=== PATIENT | male | born 1935 | race Caucasian/White ===

== ENCOUNTER 2023-03-03 11:36 | Inpatient (IN) | payer MEDICARE, OTHER ==
[~2023-03-03] VITALS: Ht 167.6 cm; Wt 77.1 kg
--- NOTE | 2023-03-03 11:40 | NUR ---
BIB [facility], Pt. AOX4, speaks ugandan, IV site on R AC noted.
[2023-03-03] MEDS ORDERED: IV NORMAL SALINE 500 ML BAG IV ONE (11:45)
--- NOTE | 2023-03-03 11:55 | NUR ---
cxr in process
[2023-03-03] MEDS ORDERED: AZIL40TA PO (11:58)
[2023-03-03] MEDS ORDERED: LINA290C PO (11:58)
[2023-03-03] MEDS ORDERED: CHOL2000 PO (11:58)
[2023-03-03] MEDS ORDERED: SODI650T PO (11:58)
[2023-03-03] MEDS ORDERED: ROSU20TA32 PO (11:58)
--- NOTE | 2023-03-03 12:09 | NUR ---
CT in process
[2023-03-03 12:21] LABS: HEMATOCRIT 34.8 % (36.7-47.1); MEAN CORPUSCULAR HEMOGLOBIN 30.2 uug (23.8-33.4); MEAN CORPUSCULAR VOLUME 90.7 fL (73.0-96.2); PLATELET COUNT (AUTO) 178 K/uL (152-348)
--- NOTE | 2023-03-03 12:35 | NUR ---
"Plan to admit" per Dr Esteves. ER registration /admitting staff Nicolas notified.
[2023-03-03 12:41] LABS: THYROID STIMULATING HORMONE 3.986 mIU/mL (0.358-3.740)
[2023-03-03 12:47] LABS: CARBON DIOXIDE 23 mmol/L (21-32); CHLORIDE 104 mmol/L (98-107); CREATININE 1.4 mg/dL (0.6-1.3); GLUCOSE 147 mg/dL (74-106); UREA NITROGEN, BLOOD 23 mg/dL (7-18)
--- NOTE | 2023-03-03 12:52 | NUR ---
back from CT, VSS at this time
[2023-03-03 12:57] LABS: ALANINE AMINOTRANSFERASE 16 U/L (16-63); ALKALINE PHOSPHATASE 88 U/L (50-136); ASPARTATE AMINOTRANSFERASE 17 U/L (15-37); BILIRUBIN,DIRECT 0.2 mg/dL (0.0-0.2); BILIRUBIN,TOTAL 0.6 mg/dL (0.2-1.0); TOTAL PROTEIN, SERUM 6.8 g/dL (6.4-8.2)
--- NOTE | 2023-03-03 13:04 | NUR ---
asked patient to urinate for ua sample and said "I will let you know when I have to go"
--- NOTE | 2023-03-03 13:50 | NUR ---
called [facility] for call panel, awaiting for call back
--- NOTE | 2023-03-03 14:09 | NUR ---
called Elvia for report. will call back
--- NOTE | 2023-03-03 14:15 | NUR ---
Stephanie called back, currently talking to MD Esteves
--- NOTE | 2023-03-03 14:39 | NUR ---
called dtr to inform about father will be getting admitted.
--- NOTE | 2023-03-03 14:40 | NUR ---
dtr called back and is now speaking to MD Grajeda urine collected and sent to lab
[2023-03-03 14:42] LABS: *BILIRUBIN,URIN NEGATIVE (NEGATIVE); *BLOOD, URINE NEGATIVE (NEGATIVE); *CLARITY,URINE CLEAR (CLEAR); *COLOR,URINE YELLOW (YELLOW); *KETONES,URINE 2+ (NEGATIVE); LEUKOCYTE ESTERASE ,URINE NEGATIVE (NEGATIVE); NITRITE, URINE NEGATIVE (NEGATIVE); PH,URINE 5.5 (5.0-8.0); UGLUCOSE NEGATIVE (NEGATIVE)
[2023-03-03] MEDS ORDERED: ACETAMINOPHEN 325 MG TABLET PO PRN (15:15)
[2023-03-03] MEDS ORDERED: REMEDY ESSENTIAL ZINC PASTE 113 GM TP PRN (15:15)
[2023-03-03] MEDS ORDERED: MAGNESIUM HYDROXIDE 30 ML LIQUID UDC PO PRN (15:15)
[2023-03-03] MEDS ORDERED: ZOLPIDEM 5 MG TABLET PO PRN (15:15)
[2023-03-03] MEDS ORDERED: ONDANSETRON 4 MG/2 ML VIAL IV PRN (15:15)
--- NOTE | 2023-03-03 15:45 | NUR ---
Received new admission from ER via stretcher. 87 y/o male, Dx.Syncope. Alert, awake and oriented. IV site at left AC g.18 intact and patent. Sinus rhythm on tele with HR of 77bpm. Admission care rendered, oriented to room, TV, BR and call light. Care plan initiated. Needs attended.
[2023-03-03 16:00] VITALS: BP 158/78
[2023-03-03] MEDS: IV NS 1000 ML 1,000 ML IV SCH (16:28)
[2023-03-03] MEDS ORDERED: DEXTROSE 50% 50 ML DISP.SYRIN IV PRN (17:45)
[2023-03-03] MEDS ORDERED: INSULIN REGULAR, HUMAN 300 UNIT/3 ML VIAL SQ PRN (17:45)
[2023-03-03 17:54] VITALS: BP 152/72
[2023-03-03 20:00] VITALS: BP 144/77
--- NOTE | 2023-03-03 20:00 | NUR ---
rounds made patient in bed AAOX3 able to to answer simple questions.no respiratory distress noted breathing even and unlabored on room air .urinal placed at b/s advised patient not to get oob by self call light placed with in reach .
[2023-03-03] MEDS: BLOOD SUGAR DIAGNOSTIC 1 EACH STRIP VI SCH (21:21)
[2023-03-03] MEDS: APIXABAN 2.5 MG TABLET PO SCH (21:21)
--- NOTE | 2023-03-03 21:21 | NUR ---
fingerstick done 125 no insulin coverage needed . patient able to take medication with sips of water given eliquis .
[2023-03-03 21:30] LABS: BACTERIA,URINE FEW /HPF (NONE SEEN); RBC,URINE 0-3 /HPF (0-3); SQUAMOUS EPITHELIAL CELL,UR FEW /HPF (NONE SEEN); WBC,URINE 0-3 /HPF (0-3)
[2023-03-04] VITALS (9 sets, daily range): BP systolic 125–167; BP diastolic 63–78
--- NOTE | 2023-03-04 01:11 | NUR ---
rounds made patient in bed awake using the urinal assisted patient voided yellowish urine about 300ml .
[2023-03-04] MEDS: IV NS 1000 ML 1,000 ML IV SCH (05:16)
[2023-03-04] MEDS: LEVOTHYROXINE SODIUM 50 MCG TABLET PO SCH (06:06)
[2023-03-04 06:42] LABS: HEMATOCRIT 34.6 % (36.7-47.1); MEAN CORPUSCULAR HEMOGLOBIN 30.4 uug (23.8-33.4); MEAN CORPUSCULAR VOLUME 89.1 fL (73.0-96.2); PLATELET COUNT (AUTO) 197 K/uL (152-348)
[2023-03-04 06:52] LABS: CARBON DIOXIDE 25 mmol/L (21-32); CHLORIDE 105 mmol/L (98-107); CREATININE 1.3 mg/dL (0.6-1.3); GLUCOSE 109 mg/dL (74-106); PHOSPHOROUS 3.5 mg/dL (2.5-4.9); POTASSIUM 4.2 mmol/L (3.5-5.1); UREA NITROGEN, BLOOD 22 mg/dL (7-18)
[2023-03-04 07:04] LABS: IRON, SERUM 38 ug/dL (50-175)
[2023-03-04] MEDS: BLOOD SUGAR DIAGNOSTIC 1 EACH STRIP VI SCH ×4 (07:42→20:41)
--- NOTE | 2023-03-04 08:00 | NUR ---
Received patient lying bed awake alert and oriented with ongoing IVF NS 1L @ 75 cc/hr infusing well at left AC g. 18 intact and patent. SR on tele HR at 86bpm. O2 sat at 97% on room air. No complain, not in distress. On regular diet. Attended
[2023-03-04 08:25] LABS: CHOLESTEROL 98 mg/dL (<200); HDL CHOLESTEROL 37 mg/dL (40-60); TRIGLYCERIDES 104 MG/DL (30-150)
[2023-03-04] MEDS: PANTOPRAZOLE SODIUM 40 MG VIAL IV SCH (08:38)
[2023-03-04] MEDS: APIXABAN 2.5 MG TABLET PO SCH ×2 (08:38→20:23)
[2023-03-04] MEDS: CLOPIDOGREL 75 MG TABLET PO SCH (08:38)
[2023-03-04] MEDS: AMIODARONE HCL 200 MG TABLET PO SCH (08:38)
--- NOTE | 2023-03-04 09:00 | NUR ---
Seen and examined by Dr. Ponce patient for 2D Echo and pacemaker interrogation to be done [place]. morning. Continue care plan. Attended
--- NOTE | 2023-03-04 10:00 | NUR ---
Seen and examined by Stephanie VAIL, with orders made and carried out. Stephanie, discussed with patient and daughter Lauren MOLINA planning for a.m. after pacemaker interrogation
--- NOTE | 2023-03-04 11:00 | NUR ---
Patient was seen by PT for eval, able to ambulate with walker.
--- NOTE | 2023-03-04 14:00 | NUR ---
Seen patient in bed, no complain. Resting comfortably. Used bathroom at times and urinal at bedside Needs attended
--- NOTE | 2023-03-04 20:30 | NUR ---
fingerstick done and patient blood sugar 125 patient on ISS mild no insulin needed .
--- NOTE | 2023-03-04 20:45 | NUR ---
due medication given and tolerated with water . eliquis no s/s of bleeding . SR TO SB on the heart monitor .on room no respiratory distress noted breathing given and unlabored .advised patient to call for assistance patient verbalized understanding .call light placed with in reach and urinal placed with in reach .
--- NOTE | 2023-03-04 21:30 | NUR ---
snack provided patient requested applesauce and vanilla pudding . patient able to feed self . assisted sitting at the side of the bed .
--- NOTE | 2023-03-04 22:15 | NUR ---
patient voided and able to used the urinal about 300 ml of yellowish urine .
[2023-03-05] VITALS: BP 141/62
--- NOTE | 2023-03-05 02:00 | NUR ---
rounds made patient in bed sleep[ing no distress noted breathing even and unlabored . patient uses the urinal at bedside .
[2023-03-05 04:00] VITALS: BP 148/63
[2023-03-05] MEDS: LEVOTHYROXINE SODIUM 50 MCG TABLET PO SCH (06:26)
--- NOTE | 2023-03-05 06:30 | NUR ---
accuchecked done fingerstick result is 100 no insulin needed .
[2023-03-05 06:34] LABS: HEMATOCRIT 32.9 % (36.7-47.1); MEAN CORPUSCULAR HEMOGLOBIN 30.8 uug (23.8-33.4); MEAN CORPUSCULAR VOLUME 88.9 fL (73.0-96.2); PLATELET COUNT (AUTO) 187 K/uL (152-348)
[2023-03-05] MEDS: BLOOD SUGAR DIAGNOSTIC 1 EACH STRIP VI SCH ×3 (06:36→16:10)
--- NOTE | 2023-03-05 07:00 | NUR ---
bedside report given to the day shift RN .
[2023-03-05 07:24] LABS: CARBON DIOXIDE 25 mmol/L (21-32); CHLORIDE 105 mmol/L (98-107); CREATININE 1.4 mg/dL (0.6-1.3); GLUCOSE 95 mg/dL (74-106); MAGNESIUM 1.8 mg/dL (1.8-2.4); PHOSPHOROUS 3.1 mg/dL (2.5-4.9); POTASSIUM 3.8 mmol/L (3.5-5.1); UREA NITROGEN, BLOOD 20 mg/dL (7-18)
[2023-03-05] MEDS: AMIODARONE HCL 200 MG TABLET PO SCH (08:27)
[2023-03-05] MEDS: PANTOPRAZOLE SODIUM 40 MG VIAL IV SCH (08:28)
[2023-03-05] MEDS: APIXABAN 2.5 MG TABLET PO SCH (08:28)
[2023-03-05] MEDS: CLOPIDOGREL 75 MG TABLET PO SCH (08:28)
[2023-03-05 11:21] VITALS: BP 147/59
[2023-03-05] MEDS ORDERED: FOLI1TAB27 PO (14:20)
[2023-03-05] MEDS ORDERED: CLOP75TA15 PO (14:20)
[2023-03-05] MEDS ORDERED: ICOS1CAP PO (14:20)
[2023-03-05] MEDS ORDERED: ESOM40CA PO (14:20)
[2023-03-05] MEDS ORDERED: GLIM4TAB37 PO (14:20)
[2023-03-05] MEDS ORDERED: LEVO50TA8 PO (14:20)
[2023-03-05] MEDS ORDERED: MIDO2.5T PO (14:20)
[2023-03-05] MEDS ORDERED: DUTA0.5C37 PO (14:22)
[2023-03-05] MEDS ORDERED: APIX2.5T PO (14:22)
--- NOTE | 2023-03-05 18:08 | NUR ---
Pt. discharged home and his daughter picked him up. Pt. noted to be stable upon the discharge. No c/o pain. IV line removed. All necessary document signed and one copy provided to the patient. Notified the patient and daughter that pt. 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 All personal belonging returned to the pt. and [employer] wheeled the pt. down.
== END 2023-03-05 18:00 | disposition home or self-care (01) | DRG 640 ==
LOC: ER 11:36 → TELE3 14:48
PROVIDERS: ADMIT Nurse Practitioner Acute Care; ATTEND Nurse Practitioner Acute Care
DX: E86.0 Dehydration (principal); N17.0 Acute kidney failure with tubular necrosis; I69.351 Hemiplegia and hemiparesis following cerebral infarction affecting right dominant side; I45.2 Bifascicular block; I48.0 Paroxysmal atrial fibrillation; Z79.01 Long term (current) use of anticoagulants; Z79.899 Other long term (current) drug therapy; Z95.0 Presence of cardiac pacemaker; E11.9 Type 2 diabetes mellitus without complications; E03.9 Hypothyroidism, unspecified; K58.9 Irritable bowel syndrome, unspecified; M47.812 Spondylosis without myelopathy or radiculopathy, cervical region; I10 Essential (primary) hypertension; D63.8 Anemia in other chronic diseases classified elsewhere; G93.89 Other specified disorders of brain
CPT/HCPCS: 36415; 70450; 71045; 72125; 83550; 83605; 83735; 84100; 84443; 84484; 85025; 85730; 86850; 86900; 86901; 87040; 93005; 93307; A4663; C1758; C9113; G0378; J1815; J7040

== ENCOUNTER 2023-06-17 11:15 | Inpatient (IN) | payer MEDICARE, OTHER ==
[~2023-06-17] VITALS: Ht 170.2 cm; Wt 83.9 kg
[~2023-06-17 11:15] MED LIST: APIX2.5T PO; AZIL40TA PO; CHOL2000 PO; CLOP75TA15 PO; DUTA0.5C37 PO; ESOM40CA PO; FOLI1TAB27 PO; GLIM4TAB37 PO; ICOS1CAP PO; LEVO50TA8 PO; LINA290C PO; ROSU20TA32 PO; SODI650T PO
[2023-06-17 11:35] LABS: BASOPHILS # (AUTO) 0.1 K/UL (0.0-0.2); BASOPHILS % (AUTO) 1.9 % (0.0-2.0); DIFFERENTIAL COMMENT 1; EOSINOPHILS # (AUTO) 0.1 K/uL (0.0-0.7); EOSINOPHILS % (AUTO) 1.8 % (0.0-7.0); HEMOGLOBIN 11.9 g/dL (12.5-16.3); LYMPHOCYTES # (AUTO) 1.4 K/uL (0.8-4.8); LYMPHOCYTES % (AUTO) 19.4 % (20.5-51.5); MEAN CORPUSCULAR HEMOGLOBIN 29.8 uug (23.8-33.4); MEAN CORPUSCULAR HGB CONC 33 g/dL (32.5-36.3); MEAN CORPUSCULAR VOLUME 90.2 fL (73.0-96.2); MONOCYTES # (AUTO) 0.3 K/uL (0.1-1.30); MONOCYTES % (AUTO) 3.4 % (0.0-11.0); NEUTROPHILS # (AUTO) 5.4 K/uL (1.8-8.9); NEUTROPHILS % (AUTO) 73.5 % (38.5-71.5); PLATELET COUNT (AUTO) 176 K/uL (152-348); RED BLOOD CELL COUNT(AUTO) 3.99 MIL/uL (4.06-5.63); RED CELL DISTRIBUTION WIDTH 14.1 % (12.1-16.2); WHITE BLOOD COUNT (AUTO) 7.3 K/uL (3.6-10.2)
[2023-06-17 11:52] LABS: CALCIUM 9.2 mg/dL (8.5-10.1); CARBON DIOXIDE 23 mmol/L (21-32); CHLORIDE 104 mmol/L (98-107); CREATININE 1.8 mg/dL (0.6-1.3); GLUCOSE 210 mg/dL (74-106); POTASSIUM 4.1 mmol/L (3.5-5.1); SODIUM SERUM 138 mmol/L (136-145); UREA NITROGEN, BLOOD 33 mg/dL (7-18)
[2023-06-17 11:55] LABS: ALBUMIN 3.3 g/dL (3.4-5.0); BILIRUBIN,DIRECT 0.2 mg/dL (0.0-0.2); BILIRUBIN,TOTAL 0.6 mg/dL (0.2-1.0)
[2023-06-17] MEDS ORDERED: HYDR453.3 TP (12:52)
[2023-06-17] MEDS ORDERED: AMIO200T5 PO (12:52)
[2023-06-17] MEDS ORDERED: IV NORMAL SALINE 1000 ML BAG IV ONE (13:00)
[2023-06-17] MEDS ORDERED: AZITHROMYCIN 250 MG TABLET PO ONE (13:00)
[2023-06-17] MEDS ORDERED: CEFTRIAXONE 1 G in IV DEXTROSE 5% 50 ML IV ONE (13:00)
[2023-06-17] MEDS ORDERED: CEFTRIAXONE /D5W 50ML IVPB **ER PYXIS IV ONE (13:17)
[2023-06-17] MEDS ORDERED: AZITHROMYCIN 250 MG TABLET ONE (13:18)
[2023-06-17 14:17] LABS: *BILIRUBIN,URIN NEGATIVE (NEGATIVE); *BLOOD, URINE NEGATIVE (NEGATIVE); *CLARITY,URINE CLEAR (CLEAR); *COLOR,URINE YELLOW (YELLOW); *KETONES,URINE NEGATIVE (NEGATIVE); *PROTEIN,URINE TRACE (NEGATIVE); LEUKOCYTE ESTERASE ,URINE NEGATIVE (NEGATIVE); NITRITE, URINE NEGATIVE (NEGATIVE); UGLUCOSE NEGATIVE (NEGATIVE)
[2023-06-17 16:20] VITALS: BP 164/72; TEMP 97.6; O2SAT 96
[2023-06-17] MEDS ORDERED: DEXTROSE 50% 50 ML DISP.SYRIN IV PRN (19:30)
[2023-06-17] MEDS ORDERED: HYDROCORTISONE 2.5% CREAM 20 GM TUBE TOP PRN (19:30)
[2023-06-17 20:00] VITALS: BP 142/68; TEMP 97.8; O2SAT 93
[2023-06-17] MEDS: BLOOD SUGAR DIAGNOSTIC 1 EACH STRIP VI SCH (20:28)
[2023-06-17] MEDS: INSULIN REGULAR, HUMAN 300 UNIT/3 ML VIAL SQ PRN (20:33)
[2023-06-17] MEDS ORDERED: HEPARIN SODIUM,PORCINE 5,000 UNITS/ML VIAL SQ SCH (22:00)
[2023-06-18] VITALS: BP 142/55; TEMP 98.4; O2SAT 94
[2023-06-18 04:00] VITALS: BP 126/66; TEMP 97.6; O2SAT 95
[2023-06-18] MEDS ORDERED: PANTOPRAZOLE SODIUM 40 MG TABLET.DR PO SCH ×2 (07:00)
[2023-06-18] MEDS ORDERED: LEVOTHYROXINE SODIUM 50 MCG TABLET PO SCH (07:00)
[2023-06-18] MEDS: BLOOD SUGAR DIAGNOSTIC 1 EACH STRIP VI SCH ×3 (07:01→16:40)
[2023-06-18 07:25] LABS: BASOPHILS % (AUTO) 0.5 % (0.0-2.0); EOSINOPHILS # (AUTO) 0.2 K/uL (0.0-0.7); EOSINOPHILS % (AUTO) 2.2 % (0.0-7.0); HEMATOCRIT 34.2 % (36.7-47.1); HEMOGLOBIN 11.7 g/dL (12.5-16.3); LYMPHOCYTES # (AUTO) 1.7 K/uL (0.8-4.8); LYMPHOCYTES % (AUTO) 20.7 % (20.5-51.5); MEAN CORPUSCULAR HEMOGLOBIN 30.3 uug (23.8-33.4); MEAN CORPUSCULAR HGB CONC 34 g/dL (32.5-36.3); MONOCYTES # (AUTO) 0.6 K/uL (0.1-1.30); MONOCYTES % (AUTO) 7.3 % (0.0-11.0); NEUTROPHILS # (AUTO) 5.8 K/uL (1.8-8.9); NEUTROPHILS % (AUTO) 69.3 % (38.5-71.5); PLATELET COUNT (AUTO) 175 K/uL (152-348); RED BLOOD CELL COUNT(AUTO) 3.85 MIL/uL (4.06-5.63); RED CELL DISTRIBUTION WIDTH 14.3 % (12.1-16.2); WHITE BLOOD COUNT (AUTO) 8.4 K/uL (3.6-10.2)
[2023-06-18 07:26] LABS: CALCIUM 9.2 mg/dL (8.5-10.1); CARBON DIOXIDE 25 mmol/L (21-32); CHLORIDE 108 mmol/L (98-107); CREATININE 1.6 mg/dL (0.6-1.3); GLUCOSE 111 mg/dL (74-106); POTASSIUM 4.5 mmol/L (3.5-5.1); SODIUM SERUM 141 mmol/L (136-145); UREA NITROGEN, BLOOD 29 mg/dL (7-18)
[2023-06-18 07:35] LABS: DIFFERENTIAL COMMENT 1
[2023-06-18 08:00] VITALS: BP 139/60; TEMP 97.4; O2SAT 96
[2023-06-18 08:12] LABS: THYROID STIMULATING HORMONE 2.148 mIU/mL (0.358-3.740)
[2023-06-18] MEDS ORDERED: CLOPIDOGREL 75 MG TABLET PO SCH (09:00)
[2023-06-18] MEDS ORDERED: Medication Not On Formulary EA (Linaclotide (Linzess) 290 MCG) PO SCH (09:00)
[2023-06-18] MEDS ORDERED: DUTASTERIDE 0.5 MG CAPSULE PO SCH (09:00)
[2023-06-18] MEDS ORDERED: FOLIC ACID 1 MG TABLET PO SCH (09:00)
[2023-06-18] MEDS ORDERED: AMIODARONE HCL 200 MG TABLET PO SCH (09:00)
[2023-06-18] MEDS ORDERED: ASPIRIN EC 81 MG TABLET.DR PO SCH (09:00)
[2023-06-18] MEDS ORDERED: Medication Not On Formulary EA (Icosapent Ethyl (Vascepa) 1 GM) PO SCH (09:00)
[2023-06-18] MEDS ORDERED: APIXABAN 2.5 MG TABLET PO SCH (09:00)
[2023-06-18] MEDS ORDERED: LOSARTAN POTASSIUM 50 MG TABLET PO SCH (09:00)
[2023-06-18] MEDS: SODIUM BICARBONATE 650 MG TABLET PO SCH ×2 (10:28→16:47)
[2023-06-18 12:00] VITALS: BP 155/72; TEMP 97.4; O2SAT 97
[2023-06-18 16:35] VITALS: BP 157/74; TEMP 97.5; O2SAT 96
[2023-06-18] MEDS: INSULIN REGULAR, HUMAN 300 UNIT/3 ML VIAL SQ PRN (16:42)
[2023-06-18] MEDS ORDERED: APIXABAN 5 MG TABLET PO SCH (21:00)
[2023-06-18] MEDS ORDERED: ATORVASTATIN 40 MG TABLET PO SCH (21:00)
[2023-06-19] MEDS ORDERED: CHOLECALCIFEROL 1,000 UNIT TABLET PO SCH (09:00)
== END 2023-06-18 17:30 | disposition left against medical advice (07) | DRG 64 ==
LOC: ER 11:15 → TELE3 15:41
PROVIDERS: ADMIT Student in an Organized Health Care Education/Training Program; ATTEND Student in an Organized Health Care Education/Training Program
DX: I63.9 Cerebral infarction, unspecified (principal); N17.0 Acute kidney failure with tubular necrosis; E87.20 Acidosis, unspecified; D68.59 Other primary thrombophilia; E05.90 Thyrotoxicosis, unspecified without thyrotoxic crisis or storm; R29.704 NIHSS score 4; I69.941 Monoplegia of lower limb following unspecified cerebrovascular disease affecting right dominant side; I48.0 Paroxysmal atrial fibrillation; K21.9 Gastro-esophageal reflux disease without esophagitis; R26.2 Difficulty in walking, not elsewhere classified; N40.0 Benign prostatic hyperplasia without lower urinary tract symptoms; I35.0 Nonrheumatic aortic (valve) stenosis; G93.89 Other specified disorders of brain; E78.5 Hyperlipidemia, unspecified; E03.9 Hypothyroidism, unspecified; D64.9 Anemia, unspecified; Z79.84 Long term (current) use of oral hypoglycemic drugs; Z79.890 Hormone replacement therapy; Z79.02 Long term (current) use of antithrombotics/antiplatelets; Z66 Do not resuscitate; Z95.0 Presence of cardiac pacemaker; M89.8X9 Other specified disorders of bone, unspecified site; Z79.01 Long term (current) use of anticoagulants; Z79.82 Long term (current) use of aspirin; Z79.899 Other long term (current) drug therapy; E11.22 Type 2 diabetes mellitus with diabetic chronic kidney disease; I12.9 Hypertensive chronic kidney disease with stage 1 through stage 4 chronic kidney disease, or unspecified chronic kidney disease; N18.9 Chronic kidney disease, unspecified; Z53.29 Procedure and treatment not carried out because of patient's decision for other reasons
CPT/HCPCS: 36415; 70030-TC; 70450; 71045; 74018; 83605; 84443; 84484; 85025; 85730; 87040; 93005; 93880; A4663; A9150; G0378; J0696; J1815; J7040; Q0144